=== PATIENT | female | born 1995 | race African-American/Black ===

== ENCOUNTER 2023-12-14 16:48 | Emergency (ER) | payer MEDICAID ==
[~2023-12-14] VITALS: Ht 160 cm; Wt 58.0 kg
[2023-12-14 16:56] VITALS: BP 149/96; PULSE 85; RESP 20; TEMP 97.9; O2SAT 98
[2023-12-14 17:36] LABS: CLARITY URINE CLEAR (CLEAR); COLOR URINE YELLOW (YELLOW); GLUCOSE URINE NEGATIVE (NEGATIVE); KETONES URINE NEGATIVE (NEGATIVE); LEUKOCYTE ESTERASE URINE 1+ (NEGATIVE); NITRITE URINE NEGATIVE (NEGATIVE); OCCULT BLOOD URINE 3+ (NEGATIVE); PROTEIN URINE NEGATIVE (NEGATIVE); SPECIFIC GRAVITY URINE 1.022 (1.005-1.030)
[2023-12-14 17:52] LABS: BACTERIA URINE 3+; SQUAMOUS EPITHELIAL CELL URINE 2+ /lpf (RARE/1+); TRICHOMONAS URINE FEW
[2023-12-14] MEDS: LIDOCAINE HCL/PF 1% 10 MG/ML 5ML VIAL INFIL ONE (19:00)
[2023-12-14] MEDS ORDERED: TINI500T18 MT (19:22)
[2023-12-14] MEDS ORDERED: DOXY100T2 MT (19:22)
[2023-12-14] MEDS: CEFTRIAXONE SODIUM 500MG VIAL IM ONE (19:45)
[2023-12-17 04:07] LABS: CHLAMYDIA TRACHOMATIS NAA Negative (Negative); NEISSERIA GONORRHOEAE NAA Negative (Negative)
[2023-12-18 09:07] LABS: *HSV 1 DNA PCR Negative (Negative); *HSV 2 DNA PCR Negative (Negative)
== END 2023-12-14 20:06 | disposition home or self-care (01) ==
LOC: ER 17:12
DX: A59.01 Trichomonal vulvovaginitis (principal); Z20.2 Contact with and (suspected) exposure to infections with a predominantly sexual mode of transmission
CPT/HCPCS: 99283; 86592; 87491; 87529 ×2; 87591; 81003; 81025; 87086; 87186; 87077; 96372; J0696; J3490

== ENCOUNTER 2024-07-26 06:37 | Emergency (ER) | payer MEDICAID, OTHER ==
[~2024-07-26] VITALS: Ht 162.6 cm; Wt 51.7 kg
[~2024-07-26 06:37] MED LIST: DOXY100T2 MT; TINI500T18 MT
[2024-07-26 06:50] VITALS: O2SAT 98
[2024-07-26 07:14] LABS: CLARITY URINE CLEAR (CLEAR); COLOR URINE YELLOW (YELLOW); GLUCOSE URINE NEGATIVE (NEGATIVE); KETONES URINE NEGATIVE (NEGATIVE); LEUKOCYTE ESTERASE URINE NEGATIVE (NEGATIVE); NITRITE URINE NEGATIVE (NEGATIVE); OCCULT BLOOD URINE NEGATIVE (NEGATIVE); PROTEIN URINE NEGATIVE (NEGATIVE); UROBILINOGEN URINE 0.2 E.U./dL (0.2-1.0)
[2024-07-26 07:27] LABS: CHLORIDE 107 mEq/L (98-107); POTASSIUM 3.8 mEq/L (3.5-5.1); SODIUM 140 mEq/L (136-145)
[2024-07-26 07:28] LABS: CARBON DIOXIDE 27 mEq/L (21-32)
[2024-07-26 07:30] LABS: INR 0.9; PROTHROMBIN TIME 10.5 sec (9.6-11.0)
[2024-07-26 07:33] LABS: CREATININE 0.8 mg/dL (0.6-1.0); GLUCOSE 86 mg/dL (70-105); UREA NITROGEN BLOOD 12 mg/dL (9-23)
[2024-07-26] MEDS ORDERED: DOXY150T9 PO (07:35)
[2024-07-26 07:36] LABS: HCG SCREEN NEGATIVE
[2024-07-26 07:37] LABS: BASOPHILS % 0.9 % (0.0-2.0); DIFFERENTIAL COMMENT 0; EOSINOPHILS % 1.8 % (0.0-5.0); HEMATOCRIT. 38.8 % (36.0-48.0); HEMOGLOBIN. 12.8 g/dL (12.0-16.0); LYMPHOCYTES % 37.5 % (20.0-50.0); MEAN CORPUSCULAR HEMOGLOBIN 30.8 pg (28.0-32.0); MEAN CORPUSCULAR HGB CONC 33.1 g/dL (31.0-37.0); MEAN CORPUSCULAR VOLUME 93.2 fL (81.0-99.0); MEAN PLATELET VOLUME 9.2 fl (7.4-10.4); MONOCYTES % 7.9 % (2.0-8.0); NEUTROPHILS % 51.9 % (40.0-76.0); PLATELET 249 x1000/uL (130-400); RED BLOOD CELL COUNT 4.16 mill/uL (4.2-5.4); RED CELL DISTRIBUTION WIDTH 12.7 % (11.6-14.6); WHITE BLOOD COUNT 3.5 x1000/uL (4.5-11.0)
[2024-07-26 08:03] VITALS: BP 169/96; PULSE 94; RESP 13; TEMP 36.7; O2SAT 100
[2024-07-26] MEDS: CEFTRIAXONE SODIUM 1G VIAL IM ONE (08:03)
== END 2024-07-26 08:05 | disposition home or self-care (01) ==
LOC: ER 06:37
DX: A64 Unspecified sexually transmitted disease (principal)
CPT/HCPCS: 80048; 81003; 84703; 83690; 85025; 85610; 36415; 96372; 99283; J0696; Z7610 ×2